=== PATIENT | female | born 1990 | race Caucasian/White ===

== ENCOUNTER → 2016-11-13 | Outpatient (CLI) | payer OTHER ==
[~2016-11-13] MED LIST: BCP PO; CRANBERRY500 M2 PO; DAILY MULTIPLE1 EACH PO; GARLIC1 MG PO; MOTRIN800 MG PO; NUVARING VAGIN1 EACH VG; PROBIOTIC1 EAC1 PO; VICODIN 5-3001 EACH PO; VITAMIN C1000 MG PO
== END | disposition home or self-care (01) ==
LOC: NUC 07:30
DX: R11.0 Nausea (principal)
CPT/HCPCS: 78264; A9541

== ENCOUNTER → 2016-12-01 | Outpatient (CLI) | payer OTHER | END | disposition home or self-care (01) | LOC: RES 12:54 → EKG 14:00 | DX: R94.2 Abnormal results of pulmonary function studies (principal); R94.31 Abnormal electrocardiogram [ECG] [EKG] | CPT/HCPCS: 93306; 94010; 94726; 94729 ==